=== PATIENT | male | born 1970 | race Caucasian/White ===

== ENCOUNTER 2018-02-18 07:27 | Emergency (ER) | payer OTHER ==
[2018-02-18 07:52] LABS: BASO % 0.5 % (0.0-1.0); EOS # 0.1 10^3/uL (0.0-0.50); EOS % 2.2 % (0.0-3.0); HEMATOCRIT 43.4 % (42.0-52.0); HEMOGLOBIN 15.7 g/dl (13.5-17.5); IMMATURE GRANULOCYTE % 0.3 % (0-3.0); LYMPH % 31.4 % (24.0-44.0); MEAN CORPUSCULAR HEMOGLOBIN 32.7 pg (27.0-33.0); MEAN CORPUSCULAR HGB CONC 36.2 g/dl (32.0-36.5); MEAN CORPUSCULAR VOLUME 90.4 fl (80.0-96.0); MONO # 0.5 10^3/uL (0.0-0.8); MONO % 7.9 % (0.0-5.0); NEUTROPHILS # 3.8 10^3/uL (1.8-7.7); NEUTROPHILS % 57.7 % (36.0-66.0); PLATELET COUNT, AUTOMATED 197 10^3/uL (150-450); RED CELL DISTRIBUTION WIDTH 11.6 % (11.5-14.5); WHITE BLOOD COUNT 6.5 10^3/uL (4.0-10.0)
[2018-02-18 08:05] LABS: INR 0.86; PROTHROMBIN TIME 11.8 SECONDS (12.1-14.4)
[2018-02-18 08:06] LABS: PARTIAL THROMBOPLASTIN TIME 26.1 SECONDS (25.4-37.6)
[2018-02-18 08:17] LABS: ALBUMIN 3.8 GM/DL (3.2-5.2); ALBUMIN/GLOBULIN RATIO 1.23 (1.00-1.93); ALKALINE PHOSPHATASE 50 U/L (45-117); ALT/SGPT 49 U/L (12-78); AMYLASE 128 U/L (25-115); ANION GAP 8 MEQ/L (8-16); AST/SGOT 43 U/L (7-37); BILIRUBIN,DIRECT 0.2 MG/DL (0.0-0.2); BILIRUBIN,TOTAL 0.9 MG/DL (0.2-1.0); BLOOD UREA NITROGEN 20 MG/DL (7-18); CALCIUM LEVEL 8.6 MG/DL (8.5-10.1); CARBON DIOXIDE LEVEL 26 MEQ/L (21-32); CHLORIDE LEVEL 105 MEQ/L (98-107); CREATININE FOR GFR 1.26 MG/DL (0.70-1.30); GLOMERULAR FILTRATION RATE > 60.0 (>60); GLUCOSE, FASTING 101 MG/DL (70-100); LIPASE 460 U/L (73-393); POTASSIUM SERUM 4.3 MEQ/L (3.5-5.1); SODIUM LEVEL 139 MEQ/L (136-145); TOTAL PROTEIN 6.9 GM/DL (6.4-8.2)
[2018-02-18 08:37] LABS: KETONE, URINE AUTO RFX NEGATIVE (NEGATIVE); LEUKOCYTE ESTERASE UR AUTO RFX NEGATIVE (NEGATIVE); NITRITE, URINE AUTO RFX NEGATIVE (NEGATIVE); RBC, URINE AUTO RFX 2 /HPF (0-3); SPECIFIC GRAVITY UR AUTO RFX 1.013 (1.002-1.035); SQUAM EPITHELIAL CELL UR AURFX 0 /HPF (0-6); WBC, URINE AUTO RFX 0 /HPF (0-3)
[2018-02-18] MEDS ORDERED: ISOVUE-370 76% 100ML VIAL (Q9967) As Ordered (08:45)
[2018-02-18] MEDS: NS 1,000 ML IV (08:46)
== END 2018-02-18 09:47 | disposition home or self-care (01) ==
LOC: M ED 07:27
DX: K85.90 Acute pancreatitis without necrosis or infection, unspecified (principal); Z87.19 Personal history of other diseases of the digestive system; K57.32 Diverticulitis of large intestine without perforation or abscess without bleeding
CPT/HCPCS: Q9967

== ENCOUNTER 2019-08-30 06:29 | Inpatient (IN) | payer OTHER ==
[~2019-08-30] VITALS: Ht 177.8 cm; Wt 84.7 kg
[~2019-08-30 06:29] MED LIST: ZOFR4TAB14 PO
[2019-08-30] MEDS ORDERED: NEXI20CA PO (06:32)
[2019-08-30 07:22] LABS: BASO % 0.3 % (0.0-1.0); EOS # 0.1 10^3/uL (0.0-0.5); EOS % 0.9 % (0.0-3.0); HEMATOCRIT 45.9 % (42.0-52.0); HEMOGLOBIN 16.3 g/dl (13.5-17.5); LYMPH # 1.5 10^3/uL (1.5-5.0); LYMPH % 16.9 % (24.0-44.0); MEAN CORPUSCULAR HEMOGLOBIN 31.8 pg (27.0-33.0); MEAN CORPUSCULAR HGB CONC 35.5 g/dl (32.0-36.5); MEAN CORPUSCULAR VOLUME 89.6 fl (80.0-96.0); MONO # 0.8 10^3/uL (0.0-0.8); MONO % 8.6 % (0.0-5.0); NEUTROPHILS # 6.3 10^3/uL (1.5-8.5); PLATELET COUNT, AUTOMATED 190 10^3/uL (150-450); RED BLOOD COUNT 5.12 10^6/uL (4.30-6.10); WHITE BLOOD COUNT 8.7 10^3/uL (4.0-10.0)
[2019-08-30] MEDS ORDERED: NS 1,000 ML IV ONE ×2 (07:30→08:15)
[2019-08-30] MEDS ORDERED: MORPHINE 4 MG/ML 1ML VIAL/SYRINGE (J2270) IV ONE (07:30)
[2019-08-30 07:49] LABS: ALBUMIN 3.8 GM/DL (3.2-5.2); ALT/SGPT 42 U/L (12-78); AMYLASE 1251 U/L (25-115); BILIRUBIN,DIRECT 0.4 MG/DL (0.0-0.2); BILIRUBIN,TOTAL 1.7 MG/DL (0.2-1.0); BLOOD UREA NITROGEN 13 MG/DL (7-18); CALCIUM LEVEL 8.7 MG/DL (8.5-10.1); CARBON DIOXIDE LEVEL 26 MEQ/L (21-32); CHLORIDE LEVEL 104 MEQ/L (98-107); CK-MB VALUE MASS < 1.0 NG/ML (<3.6); CPK CREATINE PHOSPHOKINASE 107 U/L (39-308); CREATININE FOR GFR 1.11 MG/DL (0.70-1.30); GLOMERULAR FILTRATION RATE > 60.0 (>60); GLUCOSE, FASTING 112 MG/DL (70-100); LIPASE 12348 U/L (73-393); MB/CK RELATIVE INDEX 0.93 (< OR =4); POTASSIUM SERUM 3.7 MEQ/L (3.5-5.1); SODIUM LEVEL 136 MEQ/L (136-145); TOTAL PROTEIN 7.2 GM/DL (6.4-8.2); TROPONIN I < 0.02 NG/ML (< 0.10)
[2019-08-30] MEDS ORDERED: IBUP200C28 PO (08:28)
[2019-08-30] MEDS: HYDROMORPHONE HCL 0.5 MG/ 0.5 ML SYRINGE (J1170 PER 1) IV PRN ×2 (08:43→11:19)
[2019-08-30] MEDS ORDERED: PANTOPRAZOLE 40MG VIAL (C9113 PER 1) IV SCH (11:00)
[2019-08-30] MEDS: LR 1,000 ML IV SCH ×3 (11:12→22:04)
[2019-08-30] MEDS: MORPHINE 4 MG/ML 1ML VIAL/SYRINGE (J2270) IV PRN ×2 (14:41→22:04)
--- NOTE | 2019-08-30 15:12 | HPEPDOC ---
General Date of Admission Aug 30, 2019 at 09:59 Date of Service: Aug 30, 2019 Chief Complaint The patient is a 48-year-old male admitted with a reason for visit of Pancreatitis. 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 pylori infection presented to the ED with abdominal pain and back pain for 1 day. He was in his usal state of health yesterday and he had gone for a jog. After coming back he drunk a large amount of water and after that started having a fullness in the upper abdomen and discomfort associated with back pain. All night he back was bothering him most dull aching and he could not lay down in bed. Back pain was less on sitting up. The abdominal pain was dull aching in nature about 5/10 in intensity in abraham epigastium with radiation to the back. His labs showed elevated lipase. He was admitted for his fourth episode of pancreatitis. Incidentally he has a referral to GI on 09/05/19 for ongoing episodes of intermittent diarrhea , constipation and " keeping food in ". Home Medications Scheduled Esomeprazole Magnesium (Nexium) 20 Mg Capsule.dr, 20 MG PO DAILY, (Reported) Scheduled PRN Ibuprofen (Ibuprofen) 200 Mg Capsule, 400 MG PO QID PRN for PAIN, (Reported) Allergies Coded Allergies: No Known Allergies (Unverified , 08/30/19) Past Medical History Medical History Recent H. Pylori infection Pancreatitis x 3 in the past. Surgical History None Family History Significant Family History: No pertinent family hx discussed with patient. Denies any family history of pancreatitis or GB disease. Social History * Smoker: current smoker, less than 1 pack/day Alcohol: heavy (about 4 to 5 beers or 3 to 4 glasses of wine 5 days a week. ) A-FIB/CHADSVASC A-FIB History Current/History of A-Fib/PAF?: No Review of Systems Constitutional: Denies: Chills, Fever, Night Sweats Eyes: Denies: Pain, Vision change ENT: Denies: Head Aches, Ear Pain, Dysphagia Skin: Denies: Rash, Lesions, Breakdown Pulmonary: Denies: Dyspnea, Cough Cardiovascular: Denies: Chest Pain, Palpitations, Orthopnea, Paroxysmal Noc. Dyspnea, Lt Headedness Gastrointestinal: Reports: Nausea, Abdominal Pain Genitourinary: Denies: Dysuria, Frequency, Incontinence, Retention Musculoskeletal: Reports: Back Pain Neurological: Denies: Weakness, Numbness, Change in speech, Confusion Psych: Reports: Mood Normal; Denies: Depression, Memory Issues Physical Examination General Exam: Positive: Alert, Cooperative, No Acute Distress Eye Exam: Positive: PERRLA, Conjunctiva & lids normal, EOMI; Negative: Sclera icteric ENT Exam: Positive: Atraumatic, Mucous membr. moist/pink, Pharynx Normal Neck Exam: Positive: Supple; Negative: JVD, thyromegaly Chest Exam: Positive: Clear to auscultation, Normal air movement Heart Exam: Positive: Rate Normal, Regular Rhythm, Normal S1, Normal S2; Negative: Murmurs, Rubs Abdomen Exam: Positive: BS Hypoactive, Soft, Tenderness (in the epigastrium), Other (no guarding or rigidity or rebound tenderness. ); Negative: Hepatospenomegaly Extremity Exam: Positive: Normal pulses; Negative: Clubbing, Cyanosis, Edema Skin Exam: Positive: Nl turgor and temperature; Negative: Breakdown, Lesion Neuro Exam: Positive: Normal Gait, Normal Speech, Cranial Nerves 3-12 NL, Reflexes 2+ Vital Signs Vital Signs Date Time Temp Pulse Resp B/P (MAP) Pulse Ox O2 Delivery O2 Flow Rate FiO2 08/30/19 14:41 16 Room Air 08/30/19 13:44 97.1 69 114/73 (87) 100 Laboratory Data Labs 24H Laboratory Tests 2 08/30/19 07:09: Immature Granulocyte % (Auto) 0.3, Neutrophils (%) (Auto) 73.0H, Lymphocytes (%) (Auto) 16.9L, Monocytes (%) (Auto) 8.6H, Eosinophils (%) (Auto) 0.9, Basophils (%) (Auto) 0.3, Neutrophils # (Auto) 6.3, Lymphocytes # (Auto) 1.5, Monocytes # (Auto) 0.8, Eosinophils # (Auto) 0.1, Basophils # (Auto) 0.0, Nucleated Red Blood Cells % (auto) 0.0, Anion Gap 6L, Glomerular Filtration Rate > 60.0, Calcium Level 8.7, Total Bilirubin 1.7H, Direct Bilirubin 0.4H, Aspartate Amino Transf (AST/SGOT) 33, Alanine Aminotransferase (ALT/SGPT) 42, Alkaline Phosphatase 52, Total Creatine Kinase 107, Creatine Kinase MB < 1.0, Creatine Kinase MB Relative Index 0.93, Troponin I < 0.02, Total Protein 7.2, Albumin 3.8, Albumin/Globulin Ratio 1.1, Amylase Level 1251H, Lipase 58381K CBC/BMP Laboratory Tests 08/30/19 07:09 Assessment/Plan 48 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 pylori infection presented to the ED with abdominal pain and back pain for 1 d ay. He was in his usual state of health yesterday and he had gone for a jog. After coming back he drank a large amount of water and after that started having a fullness in the upper abdomen and discomfort associated with back pain. All night he back was bothering him most dull aching and he could not lay down in bed. Back pain was less on sitting up. The abdominal pain was dull aching in nature about 5/10 in intensity in the epigastrium with radiation to the back. His labs showed elevated lipase. He was admitted for his fourth episode of pancreatitis. Acute Pancreatitis 4th episode. Does have significant almost daily alcohol intake. Will Get MRCP to evaluate pancreas, gall bladder, CBD and pancreatic anatomy NPO, IVF, Pantoprazole, morphine for pain. Plan / VTE VTE Prophylaxis Ordered?: Yes MIKEL MONTEIRO MD Aug 30, 2019 15:12
[2019-08-30 15:30] VITALS: BP 131/89
--- NOTE | 2019-08-30 16:28 | REP ---
MRCP EXAMINATION WITHOUT CONTRAST: HISTORY: Recurrent acute pancreatitis. Comparison CT study February 18, 2018. TECHNIQUE: Axial and coronal T2-weighted scans were obtained. T2-weighted MRCP exam is acquired and maximal intensity projection images are generated. MRCP FINDINGS: No focal hepatic lesion is seen. Spleen is unremarkable. No renal abnormality is observed. The adrenal glands appear normal. There is no visible ascites. There is edema in the peripancreatic soft tissues on T2-weighted scans. The main pancreatic duct is dilated measuring up to 5 mm. It is joined by the accessory pancreatic duct and drains into the duodenum. Common bile duct is normal in caliber and is seen communicating with the duodenum by a separate papilla. CBD measures 6.5 mm in greatest diameter. No evidence of choledocholithiasis. No pancreatic mass or cyst is observed. No biliary ductal dilation is seen within the liver. There is diverticulosis noted incidentally affecting the cecum. IMPRESSION: The common bile duct and the pancreatic ductal system appear to drain into the duodenum via separate orifices. This is compatible with pancreas divisum. Electronically Signed by Travis Reyes MD 08/30/2019 05:06 P
[2019-08-30] MEDS ORDERED: KETOROLAC 30 MG/ML 1ML VIAL IV ONE (16:45)
--- NOTE | 2019-08-30 18:28 | ECGEPIP ---
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 Order Number: [id number] Reading MD: Luba Gomez Measurements Intervals [place] Rate: 69 P: 20 PA: 167 QRS: -17 QRSD: 92 T: 8 QT: 390 QTc: 419 Interpretive Statements SINUS RHYTHM NO PRIOR Electronically Signed on 08-30-2019 18:28:00 EDT by Luba Gomez
[2019-08-30 22:00] VITALS: BP 130/87
[2019-08-31] MEDS: LR 1,000 ML IV SCH ×2 (03:04→08:50)
[2019-08-31 06:00] VITALS: BP 102/63
[2019-08-31 07:15] LABS: BASO % 0.2 % (0.0-1.0); EOS # 0.1 10^3/uL (0.0-0.5); EOS % 1.5 % (0.0-3.0); HEMATOCRIT 38.9 % (42.0-52.0); HEMOGLOBIN 13.7 g/dl (13.5-17.5); LYMPH # 1.9 10^3/uL (1.5-5.0); LYMPH % 28.5 % (24.0-44.0); MEAN CORPUSCULAR HEMOGLOBIN 31.9 pg (27.0-33.0); MEAN CORPUSCULAR HGB CONC 35.2 g/dl (32.0-36.5); MEAN CORPUSCULAR VOLUME 90.7 fl (80.0-96.0); MONO # 0.6 10^3/uL (0.0-0.8); MONO % 8.4 % (0.0-5.0); NEUTROPHILS # 4.1 10^3/uL (1.5-8.5); NEUTROPHILS % 60.9 % (36.0-66.0); PLATELET COUNT, AUTOMATED 147 10^3/uL (150-450); RED BLOOD COUNT 4.29 10^6/uL (4.30-6.10); WHITE BLOOD COUNT 6.7 10^3/uL (4.0-10.0)
[2019-08-31 07:34] LABS: BLOOD UREA NITROGEN 10 MG/DL (7-18); CALCIUM LEVEL 8.3 MG/DL (8.5-10.1); CARBON DIOXIDE LEVEL 27 MEQ/L (21-32); CHLORIDE LEVEL 108 MEQ/L (98-107); CREATININE FOR GFR 0.98 MG/DL (0.70-1.30); GLOMERULAR FILTRATION RATE > 60.0 (>60); GLUCOSE, FASTING 81 MG/DL (70-100); LIPASE 4038 U/L (73-393); POTASSIUM SERUM 3.8 MEQ/L (3.5-5.1); SODIUM LEVEL 140 MEQ/L (136-145)
[2019-08-31] MEDS ORDERED: THIAMINE 100 MG TAB PO SCH (09:00)
[2019-08-31] MEDS ORDERED: FOLIC ACID 1 MG TAB PO SCH (09:00)
[2019-08-31] MEDS ORDERED: FOLI1TAB11 PO (10:02)
[2019-08-31] MEDS ORDERED: THIA100TA PO (10:02)
--- NOTE | 2019-08-31 16:22 | DS.PDOC ---
Discharge Summary General Date of Admission Aug 30, 2019 at 09:59 Date of Discharge 08/31/19 Discharge Summary PROCEDURES PERFORMED DURING STAY: [None]. DISCHARGE DIAGNOSES: Acute Pancreatitis Pancreas Divisum Alcohol use disorder COMPLICATIONS/CHIEF COMPLAINT: Pancreatitis. 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 pylori infection presented to the ED with abdominal pain and back pain for 1 day. He was in his usual state of health yesterday and he had gone for a jog. After coming back he drank a large amount of water and after that started having a fullness in the upper abdomen and discomfort associated with back pain. All night he back was bothering him most dull aching and he could not lay down in bed. Back pain was less on sitting up. The abdominal pain was dull aching in nature about 5/10 in intensity in the epigastrium with radiat ion to the back. His labs showed elevated lipase. He was admitted for his fourth episode of pancreatitis. Acute Pancreatitis 4th episode. Does have significant almost daily alcohol intake. MRCP showed Pancreas Divisum. tolerated full liquid diet. Follow up with GI next week DISCHARGE MEDICATIONS: Please see below. ALLERGIES: Please see below. PHYSICAL EXAMINATION ON DISCHARGE: VITAL SIGNS: Please see below. General Exam: Positive: Alert, Cooperative, No Acute Distress Eye Exam: Positive: PERRLA, Conjunctiva & lids normal, EOMI; Negative: Sclera icteric ENT Exam: Positive: Atraumatic, Mucous membr. moist/pink, Pharynx Normal Neck Exam: Positive: Supple; Negative: JVD, thyromegaly Chest Exam: Positive: Clear to auscultation, Normal air movement Heart Exam: Positive: Rate Normal, Regular Rhythm, Normal S1, Normal S2; Negative: Murmurs, Rubs Abdomen Exam: Positive: BS Hypoactive, Soft, Tenderness (in the epigastrium), Other (no guarding or rigidity or rebound tenderness. ); Negative: Hepatosplenomegaly Extremity Exam: Positive: Normal pulses; Negative: Clubbing, Cyanosis, Edema Skin Exam: Positive: Nl turgor and temperature; Negative: Breakdown, Lesion Neuro Exam: Positive: Normal Gait, Normal Speech, Cranial Nerves 3-12 NL, Reflexes 2+ LABORATORY DATA: Please see below. IMAGING: MRCP:The common bile duct and the pancreatic ductal system appear to drain into the duodenum via separate orifices. This is compatible with pancreas divisum. ACTIVITY: [As tolerated]. DIET: Full liquids x 1 day then low fat and low cholesterol. DISPOSITION: 01 Home, Self-Care. DISCHARGE INSTRUCTIONS: Follow up GI on 09/05/19 Follow up with PMD in 1 week DISCHARGE CONDITION: [Stable]. TIME SPENT ON DISCHARGE: 35 minutes. Vital Signs/I&Os Vital Signs Date Time Temp Pulse Resp B/P (MAP) Pulse Ox O2 Delivery O2 Flow Rate FiO2 08/31/19 06:00 98.2 68 16 102/63 (76) 94 Room Air I&O- Last 24 Hours up to 6 AM 08/31/19 07:00 Intake Total 4834 ml Balance 4834 ml Laboratory Data Labs 24H Laboratory Tests 2 08/31/19 06:50: Immature Granulocyte % (Auto) 0.5, Neutrophils (%) (Auto) 60.9, Lymphocytes (%) (Auto) 28.5, Monocytes (%) (Auto) 8.4H, Eosinophils (%) (Auto) 1.5, Basophils (%) (Auto) 0.2, Neutrophils # (Auto) 4.1, Lymphocytes # (Auto) 1.9, Monocytes # (Auto) 0.6, Eosinophils # (Auto) 0.1, Basophils # (Auto) 0.0, Nucleated Red Blood Cells % (auto) 0.0, Anion Gap 5L, Glomerular Filtration Rate > 60.0, Calci um Level 8.3L, Lipase 4038H CBC/BMP Laboratory Tests 08/31/19 06:50 Discharge Medications Scheduled Folic Acid (Folic Acid) 1 Mg Tablet, 1 MG PO DAILY Thiamine Hcl (Vitamin B-1) 100 Mg Tablet, 100 MG PO DAILY Scheduled PRN Ibuprofen (Ibuprofen) 200 Mg Capsule, 400 MG PO QID PRN for PAIN, (Reported) Allergies Coded Allergies: No Known Allergies (Unverified , 08/30/19) MIKEL MONTEIRO MD Aug 31, 2019 16:22
== END 2019-08-31 13:15 | disposition home or self-care (01) | DRG 439 ==
LOC: M ED 06:29 → M ED INP 09:59 → ENRESERV 14:09 → M MS5PR 15:50
PROVIDERS: ADMIT Internal Medicine Nephrology; ATTEND Internal Medicine Nephrology
DX: K85.90 Acute pancreatitis without necrosis or infection, unspecified (principal); Q45.3 Other congenital malformations of pancreas and pancreatic duct; F17.200 Nicotine dependence, unspecified, uncomplicated; F10.10 Alcohol abuse, uncomplicated; Z79.899 Other long term (current) drug therapy

== ENCOUNTER 2019-09-28 09:57 | Day surgery (SDC) | payer OTHER ==
[~2019-09-28] VITALS: Ht 177.8 cm; Wt 80.0 kg
[~2019-09-28 09:57] MED LIST changes: +FOLI1TAB11 PO; +IBUP200C28 PO; +MULTCAP PO; +NEXI20CA PO; +NS 1,000 ML IV ONE; +THIA100TA PO
[2019-09-28] MEDS ORDERED: fentaNYL 100 MCG/2 ML INJECTION (J3010) As Ordered ONE (11:42)
[2019-09-28] MEDS ORDERED: LIDOCAINE 2% 100MG/5ML SDV (FOR ANES.) As Ordered ONE (11:49)
[2019-09-28] MEDS ORDERED: propofoL 200 MG/20 ML VIAL As Ordered ONE (11:49)
[2019-09-28 12:30] VITALS: BP 106/76
--- NOTE | 2019-09-28 13:03 | ROOR ---
Patient Name: Deyvi Givens Procedure Date: 09/28/2019 11:44 AM Date of : 1970 Age: 49 Room: [facility] Gender: Male Note Status: Finalized Procedure: Upper GI endoscopy Indications: Epigastric abdominal pain, Heartburn, Suspected gastro-esophageal reflux disease Providers: John Shelton MD Referring MD: AMPARO CHRISTENSEN MD Requesting Provider: Medicines: Monitored Anesthesia Care Complications: No immediate complications. Procedure: Pre-Anesthesia Assessment: - Prior to the procedure, a History and Physical was performed, and patient medications and allergies were reviewed. The patient is competent. The risks and benefits of the procedure and the sedation options and risks were discussed with the patient. All questions were answered and informed consent was obtained. Patient identification and proposed procedure were verified by the physician, the nurse and the anesthesiologist in the procedure room. Mental Status Examination: alert and oriented. Airway Examination: normal oropharyngeal airway and neck mobility. Respiratory Examination: clear to auscultation. CV Examination: normal. Prophylactic Antibiotics: The patient does not require prophylactic antibiotics. Prior Anticoagulants: The patient has taken no previous anticoagulant or antiplatelet agents. ASA Grade Assessment: II - A patient with mild systemic disease. After reviewing the risks and benefits, the patient was deemed in satisfactory condition to undergo the procedure. The anesthesia plan was to use monitored anesthesia care (MAC). Immediately prior to administration of medications, the patient was re-assessed for adequacy to receive sedatives. The heart rate, respiratory rate, oxygen saturations, blood pressure, adequacy of pulmonary ventilation, and response to care were monitored throughout the procedure. The physical status of the patient was re-assessed after the procedure. The Endoscope was introduced through the mouth, and advanced to the second part of duodenum. The upper GI endoscopy was accomplished without difficulty. The patient tolerated the procedure well. Findings: LA Grade A (one or more mucosal breaks less than 5 mm, not extending between tops of 2 mucosal folds) esophagitis with no bleeding was found in the distal esophagus. Biopsies were taken with a cold forceps for histology. Verification of patient identification for the specimen was done by the physician and nurse using the patient's name, date and medical record number. Estimated blood loss was minimal. The Z-line was regular and was found 44 cm from the incisors. Scattered moderate inflammation characterized by erythema and granularity was found in the gastric body and in the gastric antrum. Biopsies were taken with a cold forceps for Helicobacter pylori testing. Patchy moderate inflammation characterized by erythema, granularity and linear erosions was found in the duodenal bulb and in the second portion of the duodenum. Biopsies for histology were taken with a cold forceps for evaluation of celiac disease. Impression: - LA Grade A reflux esophagitis. Biopsied. - Z-line regular, 44 cm from the incisors. - Gastritis. Biopsied. - Duodenitis. Biopsied. Recommendation: - Patient has a contact number available for emergencies. The signs and symptoms of potential delayed complications were discussed with the patient. Return to normal activities tomorrow. Written discharge instructions were provided to the patient. - High fiber diet. - Continue present medications. - Await pathology results. 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 - Telephone GI clinic for pathology results in 1 week. - Perform an upper endoscopic ultrasound (UEUS) at appointment to be scheduled. - Return to primary care physician. John Shelton MD John Shelton MD 09/28/2019 1:02:56 PM Electronically signed by John Shelton MD Number of Addenda: 0 Note Initiated On: 09/28/2019 11:44 AM Estimated Blood Loss: Estimated blood loss was minimal.
== END 2019-09-28 13:10 | disposition home or self-care (01) ==
LOC: M OPP 09:57
PROVIDERS: ATTEND Internal Medicine Gastroenterology
DX: K21.0 Gastro-esophageal reflux disease with esophagitis (principal); K29.70 Gastritis, unspecified, without bleeding; K29.80 Duodenitis without bleeding; R12 Heartburn; F17.210 Nicotine dependence, cigarettes, uncomplicated; Z87.19 Personal history of other diseases of the digestive system
CPT/HCPCS: 43239; 88305; J3010